=== PATIENT | male | born 1990 | race Caucasian/White ===

== ENCOUNTER 2016-08-03 01:40 | Inpatient (IN) | payer OTHER ==
--- NOTE | ~2016-08-03 | PN ---
Unit #: [id number] #: [id number] Patient: RANDY MALIN [id number] [facility] [address] [place] [address] [id number] MR#: [id number] NAME: RANDY MALIN ROOM: P121 Age: 26 Sex: M Admission Date: 08/03/2016 : 1990 Attending Physician: Ian Macdonald M.D. Admitting Physician: Ian Macdonald M.D. Primary Care Physician: Primary Care Physician Elena IZAGUIRRE PROGRESS NOTES DATE OF SERVICE: 08/06/2016 SUBJECTIVE Mr. Malin is a 26-year-old white male, who was seen today and chart was reviewed, and case was discussed with the staff. He has been anxious, withdrawn, and rather seclusive to himself. Meanwhile, he has been cooperative with treatment recommendations and has been taking the medications and tolerating them fairly well. MENTAL STATUS EXAMINATION Young white male, who was casually dressed with fair personal hygiene, appears to be in no acute distress or discomfort. He was awake and alert on interaction with intact orientation. His mood was anxious with a congruent affect. His speech was slow and goal directed. He denies any suicidal or homicidal ideations. His insight and judgment remain slightly impaired. TREATMENT PLAN 1. We will continue him on his current treatment protocol. We will monitor his response and make further adjustments as needed. 2. We will continue to follow up. Dictated by... Quang Randall/evelynl TD: 08/07/2016 06:25 JOB #: [id number] [facility] PROGRESS NOTES X Ian Macdonald MD PROGRESS NOTE
--- NOTE | ~2016-08-03 | DS ---
Unit #: [id number] #: [id number] [facility] [id number] [facility] [address] [place] [address] [id number] I MR#: [id number] NAME: RANDY MALIN ROOM: P121 Age: 26 Sex: M Admission Date: 08/03/2016 : 1990 Discharge Date: 08/10/2016 Attending Physician: Ian Macdonald M.D. Primary Care Physician: Primary Care Physician No DISCHARGE SUMMARY REVISED REPORT IDENTIFYING DATA Mr. Malin is a 26-year-old single white male, who is a resident of [place], [place], and was self-referred to the hospital. DISCHARGE DIAGNOSES Psychiatric: Chronic paranoid schizophrenia; methamphetamine abuse, moderate; cocaine abuse, moderate; and cannabis abuse, moderate. Medical: None. Stressors: Moderate psychosocial stressors. HISTORY OF PRESENT ILLNESS Please see initial psychiatric evaluation for details. PAST PSYCHIATRIC HISTORY Please see initial psychiatric evaluation for details. PAST MEDICAL HISTORY Please see initial psychiatric evaluation for details. HOSPITAL COURSE The patient was admitted to the adult psychiatric unit at [facility] and was oriented to the hospital environment. Routine p.r.n. medications were initiated, and he was started back on his home medications and was seen to be acutely psychotic upon presentation, and as such, medications were adjusted and he was started on Haldol and Cogentin and was closely monitored. He was initially seen to be not showing much therapeutic response to the medication as he was exhibiting some persistent psychosis; however, he was able to show a decent and therapeutic response to medication with resolution of his psychosis and was denying any auditory hallucinations and was wanting to go home and was willing to continue treatment on an outpatient basis and as such, it was decided that he will be discharged home and will continue treatment on an outpatient basis. DISCHARGE MEDICATIONS Haldol 5 mg b.i.d. for psychosis and trazodone 100 mg at bedtime for sleep. DISCHARGE CONDITION Stable. PROGNOSIS Fair. Unit #: [id number] #: [id number] Patient: RANDY MALIN Dictated by... Quang Randall/evelynl TD: 08/10/2016 20:00 JOB #: [id number] DISCHARGE SUMMARY X Ian Macdonald MD DISCHARGE SUMMARY
--- NOTE | ~2016-08-03 | PA ---
Unit #: [id number] #: [id number] [facility] [id number] [facility] [address] [place] [address] [id number] I MR#: [id number] NAME: RANDY MALIN ROOM: P131 Age: 26 Sex: M Admission Date: 08/03/2016 : 1990 Date of Assessment: 08/03/2016 Attending Physician: Ian Macdonald M.D. Admitting Physician: Ian Macdonald M.D. Primary Care Physician: Primary Care Physician No PSYCHIATRIC ASSESSMENT DATE OF SERVICE 08/03/2016. IDENTIFYING DATA Mr. Malin is a 26-year-old single white male, who is a resident of [place], [place], and was self-referred to the hospital. CHIEF COMPLAINT "I'm have been hearing voices telling me to end my life." HISTORY OF PRESENT ILLNESS Mr. Malin is a 26-year-old white male with history of chronic mental illness, who is known to us from previous encounter, was self-referred to the hospital reporting that he has been hearing voices telling him to end his life by using a knife to cut his throat and that he has been having large bugs crawling on his body to the point that he had to take all of his clothes off to shower off the bugs. The patient reports that the bugs are trying to kill him and the people are trying to kill him as well. He reports that he needs to get back on his medication and reports increase in having paranoid thoughts as well as not functioning on outpatient basis and has been having auditory and visual hallucinations as well as tactile hallucinations and recommendation for inpatient level of care was made. SUBSTANCE ABUSE HISTORY The patient reports history of alcohol, cannabis, cocaine, and methamphetamine abuse and reports that he has been using drugs occasionally including cocaine, cannabis, and amphetamines. PAST PSYCHIATRIC HISTORY The patient has had a history of inpatient psychiatric hospitalization at [facility], [facility], and [facility], and review of the medical records indicate that currently he is not active in any treatment program, is not seeing a psychiatrist, and is not taking any psychotropic medications. PAST MEDICAL HISTORY Hypertension. ALLERGIES No known medication allergies. PERSONAL AND SOCIAL HISTORY A 26-year-old white male, who reports that he is single, unemployed, and Unit #: [id number] #: [id number] Patient: RANDY MALIN lives at home by himself and has poor social support system. MENTAL STATUS EXAMINATION Young white male, who was casually dressed with fair personal hygiene, appears to be in no acute distress or discomfort. He was awake and alert on interaction with intact orientation to time, place, and person. His mood was anxious with a congruent affect. His speech was slow and goal directed. He denies any suicidal or homicidal ideations and also denies any auditory or visual hallucinations. His insight and judgment remain significantly impaired. DIAGNOSTIC IMPRESSION Psychiatric: Chronic paranoid schizophrenia; methamphetamine abuse, moderate; cocaine abuse, moderate; and cannabis abuse, moderate. Medical: None. Stressors: Moderate psychosocial stressors. TREATMENT PLAN 1. The patient has presented with a history of substance abuse and mood disorder and has been decompensating and will need inpatient hospitalization for safety and stabilization. We will start him back on his home medications and we will adjust the medications and monitor response. 2. Supportive therapy was provided to the patient. ESTIMATED LENGTH OF STAY 5 to 7 days. ABILITY TO HELP SELF Limited. WILLINGNESS TO HELP SELF The patient appears to be willing to help self. STRENGTHS 1. Communicative. 2. Cooperative. PROBLEMS 1. Chronic dysphoric symptoms. 2. Poor social support system. DISCHARGE CRITERIA This will be contingent upon the patient's ability to show resolution of his depression and psychosis and his ability to stay safe to himself, particularly after discharge from the hospital. Dictated by... Quang Randall/flores TD: 08/03/2016 15:18 JOB #: [id number] Unit #: [id number] #: [id number] Patient: RANDY MALIN PSYCHIATRIC ASSESSMENT X Ian Macdonald MD X PSYCHIATRIC ASSESSMENT
--- NOTE | ~2016-08-03 | PN ---
Unit #: [id number] #: [id number] Patient: RANDY MALIN [id number] [facility] [address] [place] [address] [id number] I MR#: [id number] NAME: RANDY MALIN ROOM: P121 Age: 26 Sex: M Admission Date: 08/03/2016 : 1990 Attending Physician: Ian Macdonald M.D. Admitting Physician: Ian Macdonald M.D. Primary Care Physician: Primary Care Physician Elena BOSCH NOTES DATE August 07, 2016 DISCUSSION Mr. Malin is a 26-year-old white male, who was seen today and chart was reviewed and the case was discussed with the staff. He has been anxious, withdrawn, seclusive to himself, and has been showing some persistent auditory hallucinations and he has been taking his Haldol and tolerating it fairly well. MENTAL STATUS EXAMINATION Young white male, who was casually dressed with fair personal hygiene and appears to be in no acute distress or discomfort. He was awake and alert on interaction with intact orientation. His mood is anxious and depressed with a congruent affect. His speech is slow and goal-directed. He denies any suicidal or homicidal ideations, and does report auditory hallucinations. His insight and judgment remain slightly impaired. TREATMENT PLAN 1. We will continue him on his current medications and treatment protocol, and will monitor his response to the medications, and make further adjustments as needed. 2. We will continue to followup. Dictated by... Quang Randall/frannie TD: 08/08/2016 06:41 JOB #: [id number] Unit #: [id number] #: [id number] Patient: RANDY MALIN DMITRIY PROGRESS NOTES X Ian Macdonald MD PROGRESS NOTE
--- NOTE | ~2016-08-03 | PN ---
Unit #: [id number] #: [id number] Patient: RANDY MALIN [id number] [facility] [address] [place] [address] [id number] I MR#: [id number] NAME: RANDY MALIN ROOM: P121 Age: 26 Sex: M Admission Date: 08/03/2016 : 1990 Attending Physician: Ian Macdonald M.D. Admitting Physician: Ian Macdonald M.D. Primary Care Physician: Primary Care Physician Elena BOSCH NOTES DATE OF SERVICE: 08/08/2016 SUBJECTIVE Mr. Malin is a 26-year-old white male, who was seen today and chart was reviewed, and case was discussed with the staff. He has been anxious and withdrawn, though has not shown any agitation, irritability, or behavioral problems, and has been cooperative with treatment recommendations and has been taking medications and tolerating them fairly well with no reported side effects. MENTAL STATUS EXAMINATION Young white male, who was casually dressed with fair personal hygiene, appears to be in no acute distress or discomfort. He was awake and alert on interaction with intact orientation. His mood was anxious with a congruent affect. His speech was slow and goal directed. He denies any suicidal or homicidal ideations. His insight and judgment remain slightly impaired. TREATMENT PLAN 1. We will continue on his current medications and treatment protocol. We will monitor his response to the medications and make further adjustments as needed. 2. We will continue to follow up. Dictated by... Quang Randall/flores TD: 08/09/2016 07:41 JOB #: [id number] [facility] PROGRESS NOTES X Ian Macdonald MD PROGRESS NOTE
--- NOTE | ~2016-08-03 | PN ---
Unit #: [id number] #: [id number] Patient: RANDY MALIN [id number] [facility] [address] [place] [address] [id number] I MR#: [id number] NAME: RANDY MALIN ROOM: P131 Age: 26 Sex: M Admission Date: 08/03/2016 : 1990 Attending Physician: Ian Macdonald M.D. Admitting Physician: Ian Macdonald M.D. Primary Care Physician: Primary Care Physician Elena BOSCH NOTES DATE 08/04/2016 DISCUSSION Mr. Malin is a 26-year-old white male who was seen today and chart was reviewed and case was discussed with the staff. He has been anxious, withdrawn, disorganized, seclusive to himself and reports persistent auditory hallucinations and points towards left amish in the area behind the left ear stating that it hurts and he hears voices and has been very disorganized and exhibiting bizarre behavior though he has not shown any agitation or aggression. Haldol was just started yesterday and he has not yet been able to show a therapeutic response. MENTAL STATUS EXAMINATION Young white male who was casually dressed with fair personal hygiene and appears to be in no acute distress or discomfort. He was awake and alert with impaired attention and concentration. His mood was anxious with congruent affect. His speech is slow and restricted in content. His thought processes were disorganized with some looseness of associations and flight of ideas and paranoid ideations and auditory hallucinations. His insight and judgement remains significantly impaired. TREATMENT PLAN 1. Will continue his current medications and treatment protocol. Will monitor his response to medication and make further adjustments as needed. 2. Will continue to follow up. Dictated by... Quang Randall/garry TD: 08/05/2016 13:30 JOB #: [id number] Unit #: [id number] #: [id number] Patient: RANDY MALIN [facility] PROGRESS NOTES X Ian Macdonald MD PROGRESS NOTE
--- NOTE | ~2016-08-03 | HP ---
Unit #: [id number] #: [id number] Patient: RANDY COVARRUBIAS [id number] [place] [address] [id number] I MR#: [id number] NAME: RANDY COVARRUBIAS ROOM: P131 Age: 26 Sex: M Admission Date: 08/03/2016 : 1990 Attending Physician: Ian Macdonald M.D. Admitting Physician: Ian Macdonald M.D. Primary Care Physician: Primary Care Physician No HISTORY AND PHYSICAL HISTORY OF PRESENT ILLNESS Randy is a 26 year old admitted to [address] [place] [address] after reporting auditory hallucinations. He has had other admissions to this facility. PAST MEDICAL HISTORY 1. High blood pressure. 2. History of alcohol abuse. PAST SURGICAL HISTORY Nothing reported. ALLERGIES No known drug allergies. SOCIAL HISTORY He smokes greater than 1 pack per day. Has a history of alcohol abuse and further admits to a history of marijuana use and abuse of benzodiazepines. FAMILY HISTORY Medically not known. REVIEW OF SYSTEMS He does not answer all questions appropriately. There are no reports of nausea, vomiting or diarrhea. He has had no cough or increased temperature. CURRENT MEDICATIONS 1. Haldol 5 mg b.i.d. 2. Nicotine patch 7 mg daily. 3. Milk of Magnesia p.r.n. 4. Maalox p.r.n. 5. Tylenol p.r.n. PHYSICAL EXAMINATION GENERAL: Alert, well-nourished, in no apparent distress. VITAL SIGNS: Blood pressure 120/56, heart rate 80, respirations 16, temperature 98.6. WEIGHT: 201. HEIGHT: 6 feet 2 inches. SKIN: Warm and dry without rash or lesion. HEENT: Normocephalic. TMs not viewed. Oral and nasal passages clear. Conjunctivae clear. PERRLA. EOMs intact. NECK: Supple without lymphadenopathy or thyromegaly. Unit #: [id number] #: [id number] Patient: RANDY COVARRUBIAS HEART: Regular rate and rhythm without murmur. LUNGS: Clear. ABDOMEN: Soft, nontender. : Not done. EXTREMITIES: No evidence of cyanosis, clubbing or edema. Moves all without focal deficit. NEUROLOGICAL: Grossly within normal limits. Cranial Nerves: II: Visual christine are intact. III, IV AND : Extraocular movements are intact. Pupils are equal, round and reactive to light. V: Facial sensation is grossly normal. VII: Facial movements and expression are normal. VIII: Auditory acuity grossly intact. IX, X: Uvula is midline. Phonation is normal. XI: Patient shrugs shoulders and turns head normally. XII: Tongue protrudes in the midline. Sensory and Motor Function: Sensory and motor sensation is grossly normal. Motor: moves all extremities well. Coordination: Gait is normal. Deep Tendon Reflexes: Intact. IMPRESSION Psychiatric admission. RECOMMENDATIONS PSYCHIATRIC: Per psychiatrist. MEDICAL: See no contraindications to participate in facility's activities. MEDICAL PROGNOSIS Good. MEDICAL CONDITION Stable. Dictated by... Jayda Boo P.A.-C. for Quang Swan/garry TD: 08/03/2016 19:41 JOB #: [id number] HISTORY AND PHYSICAL X Jayda Boo X HISTORY AND PHYSICAL
--- NOTE | ~2016-08-03 | PN ---
Unit #: [id number] #: [id number] Patient: RANDY MALIN [id number] [facility] [address] [place] [address] [id number] MR#: [id number] NAME: RANDY MALIN ROOM: P121 Age: 26 Sex: M Admission Date: 08/03/2016 : 1990 Attending Physician: Ian Macdonald M.D. Admitting Physician: Ian Macdonald M.D. Primary Care Physician: Primary Care Physician Elena IZAGUIRRE PROGRESS NOTES DATE 08/09/2016 DISCUSSION Mr. Malin is a 26-year-old white male who was seen today and chart was reviewed and case was discussed with the staff. He has been anxious, withdrawn and rather seclusive to himself. Meanwhile, he has been cooperative with treatment recommendations and has been taking medications and tolerating them fairly well with no reported side effects. MENTAL STATUS EXAMINATION Young white male who was casually dressed with fair personal hygiene and appears to be in no acute distress or discomfort. He was awake and alert on interaction with intact orientation. His mood was anxious with congruent affect. His speech is slow and goal-directed. He denies any suicidal or homicidal ideation and also denies any auditory or visual hallucinations. His insight and judgement remains slightly impaired. TREATMENT PLAN 1. Will continue on his current medications and treatment protocol and will monitor his response to the medications and make further adjustments as needed. 2. Will continue to follow up. Dictated by... Quang Randall/garry TD: 08/09/2016 22:16 JOB #: [id number] Unit #: [id number] #: [id number] Patient: RANDY MALIN PROGRESS NOTES X Ian Macdonald MD PROGRESS NOTE
--- NOTE | ~2016-08-03 | PN ---
Unit #: [id number] #: [id number] Patient: RANDY MALIN [id number] [facility] [address] [place] [address] [id number] MR#: [id number] NAME: RANDY MALIN ROOM: 31 Age: 26 Sex: M Admission Date: 08/03/2016 : 1990 Attending Physician: Ian Macdonald M.D. Admitting Physician: Ian Macdonald M.D. Primary Care Physician: Primary Care Physician Elena BOSCH NOTES DATE 08/05/2016 DISCUSSION Mr. Malin is a 26-year-old white male who was seen today and chart was reviewed and case was discussed with the staff. He has been anxious, withdrawn, and rather seclusive to himself. Meanwhile, he has been cooperative with treatment recommendations and has been taking medications and tolerating them fairly well with no reported side effects. MENTAL STATUS EXAMINATION Young white male who was casually dressed with fair personal hygiene and appears to be in no acute distress or discomfort. He was awake and alert on interaction with intact orientation. His mood was anxious with a congruent affect. He reports some . His insight and judgment remains significantly impaired. TREATMENT PLAN 1. We will continue his current medications and treatment protocol and we will monitor his response to medication and make further adjustments as needed. 2. We will continue to follow up. Dictated by... Ian Macdonald M.D. IAA/riki TD: 08/06/2016 11:26 JOB #: [id number] Unit #: [id number] #: [id number] Patient: RANDY MALIN DMITRIY BOSCH NOTES X Ian Macdonald MD PROGRESS NOTE
[2016-08-03 09:51] LABS: BASOPHIL# 0.1 X10e3 (0-0.3); BASOPHIL% 0.9 % (0-2.5); EOSINOPHIL# 0.4 X10e3 (0-0.7); EOSINOPHIL% 3.6 % (0.0-7.0); HEMATOCRIT 43.1 % (38.0-50.0); HEMOGLOBIN 14.4 gm/dL (13.0-16.0); LYMPHOCYTE# 3.4 X10e3 (1.0-3.5); LYMPHOCYTE% 32.1 % (17.0-45.0); MEAN CORPUSCULAR HEMOGLOBIN 28.4 PG (28-34); MEAN CORPUSCULAR HGB CONC 33.4 g/dL (30-36); MEAN PLATELET VOLUME 7.6 FL (6.5-11.5); MONOCYTE# 0.7 X10e3 (0-1.0); NEUTROPHIL% 56.4 % (40-75); PLATELET COUNT 291 X10e3 (140-420); RED BLOOD COUNT 5.07 X10e (3.90-5.60); RED CELL DISTRIBUTION WIDTH 15.9 % (11.0-15.5); WHITE BLOOD COUNT 10.6 X10e3 (4.0-10.5)
[2016-08-03 09:57] LABS: DIFF IND NO
[2016-08-03 10:10] LABS: ALBUMIN SERUM 3.7 g/dL (3.5-5.0); ALKALINE PHOSPHATASE 78 U/L (32-92); ALT (SGPT) 12 U/L (10-40); AST (SGOT) 15 U/L (10-42); BILIRUBIN,TOTAL 0.2 mg/dL (0.2-2.0); BLOOD UREA NITROGEN 11 mg/dL (9-23); CALCIUM SERUM 9.1 mg/dL (8.4-10.2); CARBON DIOXIDE 28 mmol/L (22-31); CHLORIDE 101 mmol/L (100-111); GLOM FILT RATE Estimated ABOVE60 mL/min (>60); GLUCOSE FASTING 97 mg/dL (70-110); POTASSIUM 3.9 mmol/L (3.5-5.1); PROTEIN TOTAL SERUM 6.4 g/dL (6.0-8.3); SODIUM 137 mmol/L (135-145)
== END 2016-08-10 13:44 | disposition home or self-care (01) | DRG 885 ==
LOC: P1S 01:40 → POF 08-07 14:18 → P1S 08-07 14:24
PROVIDERS: Psychiatry & Neurology Psychiatry
DX: F20.0 Paranoid schizophrenia (principal); I10 Essential (primary) hypertension; F12.10 Cannabis abuse, uncomplicated; F17.200 Nicotine dependence, unspecified, uncomplicated
CPT/HCPCS: 80053; 85025

== ENCOUNTER 2016-08-17 20:06 | Inpatient (IN) | payer OTHER ==
--- NOTE | ~2016-08-17 | PN ---
Unit #: [id number] #: [id number] Patient: RANDY MALIN [id number] [facility] [address] [place] [address] [id number] MR#: [id number] NAME: RANDY MALIN ROOM: P131 Age: 26 Sex: M Admission Date: 08/17/2016 : 1990 Attending Physician: Ian Macdonald M.D. Admitting Physician: Ian Macdonald M.D. Primary Care Physician: Primary Care Physician Elena BOSCH NOTES DATE OF SERVICE 08/22/2016 DISCUSSION Mr. Malin is a 26-year-old white male with mood disorder and psychosis who was seen today. Chart was reviewed and case was discussed with the staff. He has been anxious, withdrawn, and rather seclusive to himself. Meanwhile, he has been cooperative with the treatment recommendations and has been taking the medications and tolerating them fairly well with no reported side effects. MENTAL STATUS EXAMINATION Young white male who is casually dressed with fair personal hygiene and appears to be in no acute distress or discomfort. He was awake and alert on interaction with intact orientation. His mood is anxious with congruent affect. His speech is slow and restricted in content. His thought processes were disorganized with some looseness of association, paranoid ideations, and delusional behavior. His insight and judgment remain significantly impaired. TREATMENT PLAN 1. We will continue him on his current medications and treatment protocol. We will monitor his response to the medications and make further adjustments as needed. 2. We will continue to follow up. Dictated by... Quang Randall/marisabel TD: 08/23/2016 09:53 JOB #: [id number] Unit #: [id number] #: [id number] Patient: RANDY MALIN DANITZA NOTES Page 1 of 1 X Ian Macdonald MD PROGRESS NOTE
--- NOTE | ~2016-08-17 | HP ---
Unit #: [id number] #: [id number] Patient: RANDY COVARRUBIAS [id number] [facility] [address] [place] [address] [id number] I MR#: [id number] NAME: RANDY COVARRUBIAS ROOM: P112 Age: 26 Sex: M Admission Date: 08/17/2016 : 1990 Attending Physician: Ian Macdonald M.D. Admitting Physician: Ian Macdonald M.D. Primary Care Physician: Primary Care Physician No HISTORY AND PHYSICAL Randy is a 26 year old admitted to [address] [place] [address] reporting continued auditory hallucinations. He was recently discharged from this facility after treatment for the same. The patient was seen and H and P dated 08/03/16 was reviewed. This is current. No changes. Please see H and P dated 08/03/16. Dictated by... Jayda Boo P.A.-C. for Quang Swan/garry TD: 08/18/2016 16:31 JOB #: [id number] HISTORY AND PHYSICAL Page 1 of 1 X Jayda Boo HISTORY AND PHYSICAL
--- NOTE | ~2016-08-17 | PN ---
Unit #: [id number] #: [id number] Patient: RANDY MALIN [id number] [facility] [address] [place] [address] [id number] I MR#: [id number] NAME: RANDY MALIN ROOM: P131 Age: 26 Sex: M Admission Date: 08/17/2016 : 1990 Attending Physician: Ian Macdonald M.D. Admitting Physician: Ian Macdonald M.D. Primary Care Physician: Primary Care Physician Elena BOSCH NOTES DATE 08/21/2016 DISCUSSION Mr. Malin is a 16-year-old, white male with mood disorder and psychosis who was seen today and chart was reviewed and case was discussed with the staff who reports the patient has been exhibiting very bizarre behavior and has been seclusive to himself and reports the patient once again was laying in his bed and had blunted affect with minimal interaction with poor eye contact and did not carry on meaningful conversation and (1) to most of the questions. However, it appears that he has been taking the medication his Zyprexa recently started on his own request and he has been tolerating it fairly well though has not shown a therapeutic response yet but however at the same no agitation or violent outburst has been reported. MENTAL STATUS EXAM Young white male who was casually dressed with fair personal hygiene, appears to be in no acute distress or discomfort. He was awake and alert on interaction with intact orientation. His mood was anxious with congruent affect. He denies any suicidal or homicidal ideation. Also, denies any auditory or visual hallucinations. His insight and judgement remains slightly impaired. TREATMENT PLAN 1. We will continue him on his current medications and treatment protocol. We will monitor his response to the medications and make further adjustments as needed. 2. We will continue to follow up. Dictated by... Quang Randall/collin TD: 08/23/2016 03:30 JOB #: [id number] Unit #: [id number] #: [id number] Patient: RANDY MALIN PROGRESS NOTES Page 1 of 1 X Ian Macdonald MD NOTE
--- NOTE | ~2016-08-17 | DS ---
Unit #: [id number] #: [id number] Patient: RANDY MALIN [id number] [facility] [place] [address] [id number] I MR#: [id number] NAME: RANDY MALIN ROOM: P131 Age: 26 Sex: M Admission Date: 08/17/2016 : 1990 Discharge Date: 08/24/2016 Attending Physician: Ian Macdonald M.D. Primary Care Physician: Primary Care Physician No DISCHARGE SUMMARY IDENTIFYING DATA Mr. Malin is a 26-year-old single white male who is a resident of [place], [place], was brought to the hospital by his family. DISCHARGE DIAGNOSES Psychiatric: Schizoaffective disorder, bipolar type, most recent episode depressed, recurrent, moderate, with psychosis. Medical: None. Stressors: Moderate psychosocial stressors. HISTORY OF PRESENT ILLNESS Please see initial evaluation for details. PAST PSYCHIATRIC HISTORY Please see initial evaluation for details. PAST MEDICAL HISTORY Please see initial evaluation for details. HOSPITAL COURSE The patient was admitted to the adult psychiatric unit at [facility] and was oriented to the hospital environment. Routine p.r.n. medications were initiated, and he was initially started on Haldol; however, he was seen to be exhibiting very bizarre behavior with acute psychosis and stated that he will rather be on olanzapine, and Zyprexa on his own request was started at 10 mg b.i.d. with good tolerability and therapeutic response and significant improvement in his psychosis, though he remained seclusive to himself and was very withdrawn, he was denying any suicidal or homicidal ideations and also denying any auditory or visual hallucination and was not seen to be danger to self or anyone else, and as such, it was decided that he will be discharged home and will continue treatment on an outpatient basis. DISCHARGE MEDICATIONS Zyprexa 10 mg b.i.d. for psychosis. DISCHARGE CONDITION Stable. PROGNOSIS Fair. Unit #: [id number] #: [id number] Patient: RANDY MALIN Dictated by... Ian Macdonald M.D. IAA/modl TD: 08/24/2016 06:57 JOB #: [id number] DISCHARGE SUMMARY Page 1 of 1 X Ian Macdonald MD DISCHARGE SUMMARY
--- NOTE | ~2016-08-17 | PN ---
Unit #: [id number] #: [id number] Patient: RANDY MALIN [id number] [facility] [address] [place] [address] [id number] I MR#: [id number] NAME: RANDY MALIN ROOM: P131 Age: 26 Sex: M Admission Date: 08/17/2016 : 1990 Attending Physician: Ian Macdonald M.D. Admitting Physician: Ian Macdonald M.D. Primary Care Physician: Primary Care Physician Elena BOSCH NOTES DATE OF SERVICE: 08/20/2016 SUBJECTIVE Mr. Malin is a 26-year-old white male, who was seen today and chart was reviewed, and case was discussed with the staff. He appears to be doing better than yesterday . MENTAL STATUS EXAMINATION Young white male, who was casually dressed with fair personal hygiene, appears to be in no acute distress or discomfort. He was awake and alert on interaction with intact orientation. His mood was anxious with a congruent affect. His speech was slow and goal directed. He denies any suicidal or homicidal ideations and also denies any auditory or visual hallucinations. His insight and judgment remain slightly impaired. TREATMENT PLAN 1. We will continue him on his current medications and treatment protocol. We will monitor his response to medications and make further adjustments as needed. 2. We will continue to follow up. Dictated by... Quang Randall/evelynl TD: 08/22/2016 06:14 JOB #: [id number] DMITRIY PROGRESS NOTES Page 1 of 1 X Ian Macdonald MD PROGRESS NOTE
--- NOTE | ~2016-08-17 | PN ---
Unit #: [id number] #: [id number] Patient: RANDY MALIN [id number] [facility] [address] [place] [address] [id number] I MR#: [id number] NAME: RANDY MALIN ROOM: 12 Age: 26 Sex: M Admission Date: 08/17/2016 : 1990 Attending Physician: Ian Macdonald M.D. Admitting Physician: Ian Macdonald M.D. Primary Care Physician: Primary Care Physician Elena BOSCH NOTES DATE 08/19/2016 DISCUSSION Mr. Malin is a 26-year-old white male who was seen today and chart was reviewed and case was discussed with the staff. The patient had a rough evening last night with violent outbursts, aggression and verbal aggression requiring code to be called and the patient was managed and held until an intramuscular injection of Haldol and Benadryl had to be given per recommendation of me. This morning, the patient was lying in his bed and was very withdrawn and seclusive stating that he needs to be on his Olanzapine as he stated that it helps him better than most of the other medications as initially he was Haldol on presentation. He stated that it has not been helping him enough. MENTAL STATUS EXAMINATION Young white male who was casually dressed with fair personal hygiene and appears to be in no acute distress or discomfort. He was awake and alert with intact orientation. His mood was anxious with a congruent affect. His speech was slow and restricted in content. His thought processes were disorganized with some looseness of confusion and paranoid delusion and delusional behavior. His insight and judgment remains significantly impaired. TREATMENT PLAN 1. We will switch his Haldol to given twice a day. We will monitor response and make further adjustments as needed. 2. Will continue to follow up. Dictated by... Qunag Randall/riki TD: 08/20/2016 09:04 JOB #: [id number] Unit #: [id number] #: [id number] Patient: RANDY MALIN PROGRESS NOTES Page 1 of 1 X Ian Macdonald MD NOTE
--- NOTE | ~2016-08-17 | PN ---
Unit #: [id number] #: [id number] Patient: RANDY MALIN [id number] [facility] [address] [place] [address] [id number] I MR#: [id number] NAME: RANDY MALIN ROOM: P131 Age: 26 Sex: M Admission Date: 08/17/2016 : 1990 Attending Physician: Ian Mcadonald M.D. Admitting Physician: Ian Macdonald M.D. Primary Care Physician: Primary Care Physician Elena BOSCH NOTES DATE 08/23/2016 DISCUSSION Mr. Malin is a 26-year-old white male who was seen today and chart was reviewed and case was discussed with the staff. He has been anxious, withdrawn and rather seclusive to himself and has been exhibiting somewhat bizarre behavior with thought blocking and persistent paranoia though overall appears to be showing improvement in his psychosis and daily functioning and no agitation or aggression has been noted. He has been taking his Zyprexa and tolerating it fairly well. MENTAL STATUS EXAMINATION Young white male who was casually dressed with fair personal hygiene and appears to be in no acute distress or discomfort. He was awake and alert on interaction with intact orientation. His mood was anxious with congruent affect. His speech is slow and restricted in content. His thought processes were disorganized with some looseness of associations and thought blocking and paranoid ideations. He denies any suicidal or homicidal ideation. His insight and judgement remains slightly impaired. TREATMENT PLAN 1. Will continue on his current medications and treatment protocol. Will monitor his response and make further adjustments as needed. 2. Will continue to follow up. Dictated by... Quang Randall/garry TD: 08/24/2016 16:53 JOB #: [id number] Unit #: [id number] #: [id number] Patient: RANDY MALIN PROGRESS NOTES Page 1 of 1 X Ian Macdonald MD PROGRESS NOTE
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
== END 2016-08-24 10:30 | disposition home or self-care (01) | DRG 885 ==
LOC: P1S 20:06
DX: F31.5 Bipolar disorder, current episode depressed, severe, with psychotic features (principal); R45.851 Suicidal ideations
CPT/HCPCS: J1200; J1630

== ENCOUNTER 2016-10-16 12:44 | Inpatient (IN) | payer SELFPAY ==
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
--- NOTE | ~2016-10-16 | PN ---
Unit #: [id number] #: [id number] Patient: RANDY MALIN [id number] [facility] [address] [place] [address] [id number] I MR#: [id number] NAME: RANDY MALIN ROOM: P113 Age: 26 Sex: M Admission Date: 10/16/2016 : 1990 Attending Physician: Ian Macdonald M.D. Admitting Physician: Ian Macdonald M.D. Primary Care Physician: Primary Care Physician Elena BOSCH NOTES DATE OF SERVICE: 10/19/2016 SUBJECTIVE Mr. Malin is a 26-year-old white male who was seen today and chart was reviewed, and case was discussed with the staff. He has been anxious, withdrawn, though has not shown any agitation or irritability, and has been cooperative with treatment recommendations and has been taking the medications and tolerating them fairly well with no reported side effects. MENTAL STATUS EXAMINATION Young white male who was casually dressed with fair personal hygiene, appears to be in no acute distress or discomfort. He was awake and alert on interaction with intact orientation. His mood was anxious with a congruent affect. He denies any suicidal or homicidal ideations, and also denies any auditory or visual hallucinations. His insight and judgment remain slightly impaired. TREATMENT PLAN 1. We will continue him on his current medications and treatment protocol. We will monitor his response to medications and make further adjustments as needed. 2. We will continue to follow up. Dictated by... Quang Randall/flores TD: 10/19/2016 11:42 JOB #: [id number] [facility] PROGRESS NOTES Page 1 of 1 X Ian Macdonald MD PROGRESS NOTE
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
--- NOTE | ~2016-10-16 | PN ---
Unit #: [id number] #: [id number] Patient: RANDY MALIN [id number] [facility] [address] [place] [address] [id number] MR#: [id number] NAME: RANDY MALIN ROOM: 13 Age: 26 Sex: M Admission Date: 10/16/2016 : 1990 Attending Physician: Ian Macdonald M.D. Admitting Physician: Ian Macdonald M.D. Primary Care Physician: Primary Care Physician Elena BOSCH NOTES DATE OF SERVICE 10/18/2016 DISCUSSION Mr. Malin is a 26-year-old white male with history of mood disorder who was seen today. Chart was reviewed and case was discussed with the staff. He has been anxious, withdrawn, and rather seclusive to himself and has not been socializing or interacting and has not been responding and has been rather very isolative. However, he has not shown any agitation or aggression and has been taking the medications and tolerating them fairly well. MENTAL STATUS EXAMINATION Young white male who is casually dressed with fair personal hygiene, appears to be in no acute distress or discomfort. The patient was awake and alert with impaired attention and concentration. His mood is anxious with a congruent affect. He denies any suicidal or homicidal ideations and also denies any auditory or visual hallucinations. His insight and judgment remain slightly impaired. TREATMENT PLAN 1. We will continue him on his current medications and treatment protocol. We will monitor his response to the medication and make further adjustments as needed. 2. We will continue to follow up. Dictated by... Quang Randall/marisabel TD: 10/19/2016 10:14 JOB #: [id number] Unit #: [id number] #: [id number] Patient: RANDY MALIN ROSEHOLLIE DANITZA NOTES Page 1 of 1 X Ian Macdonald MD PROGRESS NOTE
--- NOTE | ~2016-10-16 | DS ---
Unit #: [id number] #: [id number] [facility]: [facility] [id number] [facility] [place] [address] [id number] I MR#: [id number] NAME: RANDY MALIN ROOM: [facility] Age: 26 Sex: M Admission Date: 10/16/2016 : 1990 Discharge Date: 10/20/2016 Attending Physician: Ian Macdonald M.D. Primary Care Physician: Primary Care Physician No DISCHARGE SUMMARY IDENTIFYING DATA Mr. Malin is a 26-year-old single white male, who is a resident of , and is known to us from previous encounter, and was self-referred to the hospital on voluntary basis. DISCHARGE DIAGNOSES Psychiatric: Chronic paranoid schizophrenia. Medical: None. Stressors: Moderate psychosocial stressors. HISTORY OF PRESENT ILLNESS Please see initial psychiatric evaluation for details. PAST PSYCHIATRIC HISTORY Please see initial psychiatric evaluation for details. PAST MEDICAL HISTORY Please see initial psychiatric evaluation for details. HOSPITAL COURSE The patient was admitted to the adult psychiatric unit at [facility] and was oriented to the hospital environment. Routine p.r.n. medications were initiated, and he was started back on his home medications including his Zyprexa 10 mg b.i.d. with good tolerability and therapeutic response, followed by which, it was decided that he will be discharged home and will continue treatment on an outpatient basis. DISCHARGE MEDICATION Zyprexa 10 mg b.i.d. for psychosis. DISCHARGE CONDITION Stable. PROGNOSIS Fair. Dictated by... Quang Randall/flores TD: 10/20/2016 06:35 JOB #: [id number] Unit #: [id number] #: [id number] Patient: RANDY MALIN DISCHARGE SUMMARY Page 1 of 1 X Ian Macdonadl MD X DISCHARGE SUMMARY
--- NOTE | ~2016-10-16 | HP ---
Unit #: [id number] #: [id number] Patient: RANDY COVARRUBIAS [id number] [place] [address] [id number] MR#: [id number] NAME: RANDY COVARRUBIAS ROOM: P113 Age: 26 Sex: M Admission Date: 10/16/2016 : 1990 Attending Physician: Ian Macdonald M.D. Admitting Physician: Ian Macdonald M.D. Primary Care Physician: Primary Care Physician No HISTORY AND PHYSICAL HISTORY OF PRESENT ILLNESS Randy is a 26 year old admitted to [address] [place] [address] reporting hallucinations. He has had other admissions to this facility for the same. PAST MEDICAL HISTORY 1. High blood pressure. 2. History of alcohol abuse. PAST SURGICAL HISTORY Nothing reported. ALLERGIES No known drug allergies. SOCIAL HISTORY Smokes greater than 1 pack per day. Has a history of alcohol abuse and admits to a history of marijuana use and abuse of benzodiazepines. FAMILY HISTORY Medically noncontributory. REVIEW OF SYSTEMS He does not answer all questions appropriately. There were no reports of nausea, vomiting or diarrhea. He has had no cough or increased temperature. CURRENT MEDICATIONS 1. Inderal 20 mg b.i.d. 2. Zyprexa 10 mg b.i.d. 3. Vistaril 50 mg q. 6 hours p.r.n. 4. Milk of Magnesia p.r.n. 5. Maalox p.r.n. 6. Tylenol p.r.n. 7. Nicotine patch 7 mg daily. PHYSICAL EXAMINATION GENERAL: Alert, well-nourished, in no apparent distress. VITAL SIGNS: Blood pressure 144/72, heart rate 72, respirations 16, temperature 98.6. WEIGHT: 206. HEIGHT: 6 feet 2 inches. SKIN: Warm and dry without rash or lesion. HEENT: Normocephalic. TMs not viewed. Oral and nasal passages clear. Unit #: [id number] #: [id number] Patient: RANDY COVARRUBIAS Conjunctivae clear. PERRLA. EOMs intact. NECK: Supple without lymphadenopathy or thyromegaly. HEART: Regular rate and rhythm without murmur. LUNGS: Clear. ABDOMEN: Soft, nontender. : Not done. EXTREMITIES: No evidence of cyanosis, clubbing or edema. Moves all without focal deficit. NEUROLOGICAL: Grossly within normal limits. Cranial Nerves: II: Visual christine are intact. III, IV AND : Extraocular movements are intact. Pupils are equal, round and reactive to light. V: Facial sensation is grossly normal. VII: Facial movements and expression are normal. VIII: Auditory acuity grossly intact. IX, X: Uvula is midline. Phonation is normal. XI: Patient shrugs shoulders and turns head normally. XII: Tongue protrudes in the midline. Sensory and Motor Function: Sensory and motor sensation is grossly normal. Motor: moves all extremities well. Coordination: Gait is normal. Deep Tendon Reflexes: Intact. IMPRESSION Psychiatric admission. RECOMMENDATIONS PSYCHIATRIC: Per psychiatrist. MEDICAL: See no contraindications to participate in facility's activities. MEDICAL PROGNOSIS Good. MEDICAL CONDITION Stable. Dictated by... Jayda Boo P.A.-C. for Quang Swan/garry TD: 10/17/2016 16:23 JOB #: [id number] HISTORY AND PHYSICAL Page 1 of 1 X Jayda Boo HISTORY AND PHYSICAL
[2016-10-17 12:25] LABS: BASOPHIL# 0.1 X10e3 (0-0.3); BASOPHIL% 0.9 % (0-2.5); EOSINOPHIL# 0.3 X10e3 (0-0.7); EOSINOPHIL% 2.7 % (0.0-7.0); HEMATOCRIT 43.4 % (38.0-50.0); HEMOGLOBIN 14.4 gm/dL (13.0-16.0); LYMPHOCYTE# 2.1 X10e3 (1.0-3.5); LYMPHOCYTE% 21.6 % (17.0-45.0); MEAN CELL VOLUME 86.7 FL (83-96); MEAN CORPUSCULAR HEMOGLOBIN 28.9 PG (28-34); MEAN CORPUSCULAR HGB CONC 33.3 g/dL (30-36); MEAN PLATELET VOLUME 8.4 FL (6.5-11.5); MONOCYTE# 0.6 X10e3 (0-1.0); MONOCYTE% 5.5 % (3.0-12.0); NEUTROPHIL# 6.9 X10e3 (1.5-7.1); NEUTROPHIL% 69.3 % (40-75); PLATELET COUNT 298 X10e3 (140-420); RED CELL DISTRIBUTION WIDTH 15.7 % (11.0-15.5); WHITE BLOOD COUNT 9.9 X10e3 (4.0-10.5)
[2016-10-17 12:26] LABS: DIFF IND NO
[2016-10-17 12:49] LABS: ALBUMIN SERUM 3.7 g/dL (3.5-5.0); BILIRUBIN,TOTAL 0.5 mg/dL (0.2-2.0); CALCIUM SERUM 9.2 mg/dL (8.4-10.2); CREATININE SERUM 0.9 mg/dL (0.6-1.4); GLOM FILT RATE Estimated 116.6 mL/min (>60); POTASSIUM 4.5 mmol/L (3.5-5.1); PROTEIN TOTAL SERUM 6.4 g/dL (6.0-8.3)
[2016-10-17 12:51] LABS: THYROID STIMULATING HORMONE 0.58 uIU/ml (0.34-5.60)
[2016-10-17 12:58] LABS: FREE THYROXIN (T4) 0.96 ng/dL (0.58-1.64)
== END 2016-10-20 10:25 | disposition home or self-care (01) | DRG 885 ==
LOC: P1S 14:09
PROVIDERS: Psychiatry & Neurology Psychiatry
DX: F20.0 Paranoid schizophrenia (principal); I10 Essential (primary) hypertension; F17.210 Nicotine dependence, cigarettes, uncomplicated
CPT/HCPCS: 80053; 84439; 84443; 85025; J3230